=== PATIENT | female | born 1965 | race Caucasian/White ===

== ENCOUNTER 2018-01-02 11:13 | Inpatient (IN) | payer MEDICAID ==
[~2018-01-02] VITALS: Ht 165.1 cm; Wt 65.9 kg
[~2018-01-02 11:13] MED LIST: BECL8.7A3 IH; DOCU-20 PO; GABA-338 PO; MONT10TA21 PO; MORP15TA PO; NAPR-56 PO; NITR0.4T51 SL; OXYBUTYNIN PO; PSEU-225 PO; RANI150C11 PO; TRIA16.5 NS
[2018-01-02] MEDS ORDERED: normal saline 1000ML IV soln IVB ONE (12:20)
[2018-01-02] MEDS ORDERED: ondansetron/PF 4mg/2ml inj IV ONE (12:20)
[2018-01-02 12:40] LABS: BASOPHILS % (AUTO) 0.5 % (0-1); EOSINOPHILS % (AUTO) 0.3 % (0-6); HEMATOCRIT 32.2 % (35.0-45.0); HEMOGLOBIN 10.6 g/dl (12.0-16.0); LYMPHOCYTES # (AUTO) 0.6 X10'3 (1.1-4.8); LYMPHOCYTES % (AUTO) 10.4 % (21-51); MEAN CORPUSCULAR HEMOGLOBIN 25.2 PG (27.0-31.0); MEAN CORPUSCULAR HGB CONC 32.9 % (33.0-36.5); MEAN CORPUSCULAR VOLUME 76.7 FL (78-98); MEAN PLATELET VOLUME 6.7 FL (7.4-10.4); MONOCYTES # (AUTO) 0.6 X10'3 (0-0.9); MONOCYTES % (AUTO) 10.1 % (2-12); NEUTROPHILS # (AUTO) 4.7 X10'3 (1.8-7.7); NEUTROPHILS % (AUTO) 78.7 % (42-75); PLATELET COUNT 782 X10'3 (140-440); RED CELL DISTRIBUTION WIDTH 14.5 % (11.5-14.5)
[2018-01-02 12:53] LABS: ALANINE AMINOTRANSFERASE 17 U/L (12-78); ALBUMIN 1.9 G/DL (3.4-5.0); ALBUMIN/GLOBULIN RATIO 0.5 (1.1-1.5); ALKALINE PHOSPHATASE 139 IU/L (46-116); ANION GAP 13 (8-16); ASPARTATE AMINO TRANSFERASE 12 U/L (10-37); BILIRUBIN,TOTAL 0.6 MG/DL (0.1-1.0); BLOOD UREA NITROGEN 19 MG/DL (7-18); BUN/CREATININE RATIO 24.7 (6.6-38.0); CALCIUM 9.2 MG/DL (8.5-10.1); CHLORIDE 95 MMOL/L (99-107); CREATININE 0.77 MG/DL (0.40-0.90); GLUCOSE 103 MG/DL (70-104); POTASSIUM 4.5 MMOL/L (3.5-5.1); SODIUM 130 MMOL/L (135-145); TOTAL CARBON DIOXIDE 21.9 MMOL/L (24-32); TOTAL PROTEIN 5.8 G/DL (6.4-8.2); eGFR 78 ML/MIN
[2018-01-02 12:58] LABS: LIPASE < 50 U/L (73-393); TROPONIN I < 0.04 NG/ML (0.0-0.05)
[2018-01-02 13:13] LABS: PLATELET ESTIMATE INCREASED; TOTAL CELLS COUNTED 100
[2018-01-02 13:14] LABS: POLYCHROMASIA FEW; SCHISTOCYTES FEW
[2018-01-02 13:15] LABS: ROULEAUX 1+
[2018-01-02 13:16] LABS: SPHEROCYTES FEW
[2018-01-02] MEDS ORDERED: CefTRIAXone 2gm/D5W 50ml 50 ML IV ONE (13:25)
[2018-01-02 13:34] LABS: CLARITY,URINE CLEAR (Clear); COLOR,URINE YELLOW (Yellow); GLUCOSE, URINE NEGATIVE (Neg); KETONES,URINE >=80 mg/dl (Neg); LEUKOCYTE ESTERASE ,URINE NEGATIVE (Neg); NITRITES, URINE NEGATIVE (Neg); OCCULT BLOOD,URINE NEGATIVE (Neg); PROTEIN,URINE 30 mg/dl (Neg)
[2018-01-02 13:36] LABS: UA COLLECTION TYPE STRAIGHT CATH
[2018-01-02 13:41] LABS: BACTERIA,URINE NONE SEEN /HPF (Neg); RBC,URINE NONE SEEN /HPF (0-2); SQUAMOUS EPITHELIAL CELL,UR FEW /LPF (FEW); WBC,URINE NONE SEEN /HPF (0-4)
[2018-01-02] MEDS ORDERED: VENL150C2 PO (14:01)
[2018-01-02] MEDS ORDERED: OXYB15TA PO (14:07)
[2018-01-02] MEDS ORDERED: METO25TA6 PO (14:10)
[2018-01-02] MEDS ORDERED: iohexol 300mg/ml 100ml inj. ONE (14:12)
[2018-01-02] MEDS: normal saline 1000ml 1,000 ML IV SCH (14:29)
[2018-01-02] MEDS ORDERED: acetaminophen 325mg tablet PO PRN ×2 (14:30)
[2018-01-02] MEDS ORDERED: magnesium hydroxide 30ml (MOM) UD suspension PO PRN (14:30)
[2018-01-02] MEDS ORDERED: HYDROcodone/acetaminophen 5mg/325mg tablet PO PRN (14:30)
[2018-01-02] MEDS ORDERED: mag hydrox/Alum hydrox/simeth 30ml oral suspension PO PRN (14:30)
[2018-01-02] MEDS: levoFLOXACIN-Levaquin 500mg/D5 100 ML IV SCH (16:22)
[2018-01-02 17:45] VITALS: BP 111/58
[2018-01-02 18:00] VITALS: BP 109/74
[2018-01-02] MEDS: metroNIDAZOLE-Flagyl 500mg/NS 100 ML IV SCH (19:09)
[2018-01-02] MEDS: oxybutynin 5mg tablet PO SCH (19:11)
[2018-01-02] MEDS: morphine ER 15mg tablet PO SCH (19:11)
[2018-01-02] MEDS: famotidine 20mg tablet PO SCH (19:11)
[2018-01-02] MEDS: docusate sod 100mg capsule PO SCH (19:20)
[2018-01-02] MEDS ORDERED: metoprolol tartrate 25mg tablet PO SCH (20:00)
[2018-01-02] MEDS: zolpidem 5mg tablet PO PRN (20:35)
[2018-01-02] MEDS: ondansetron/PF 4mg/2ml inj IV PRN (20:35)
[2018-01-02] MEDS: montelukast 10mg tablet PO SCH (20:35)
[2018-01-02] MEDS: gabapentin 300mg capsule PO SCH (20:48)
[2018-01-03] VITALS: BP 112/66
[2018-01-03] MEDS: metroNIDAZOLE-Flagyl 500mg/NS 100 ML IV SCH ×2 (00:18→08:03)
[2018-01-03 05:44] LABS: BASOPHILS % (AUTO) 0.2 % (0-1); EOSINOPHILS # (AUTO) 0.1 X10'3 (0-0.9); EOSINOPHILS % (AUTO) 1.5 % (0-6); HEMATOCRIT 27.7 % (35.0-45.0); HEMOGLOBIN 9.1 g/dl (12.0-16.0); LYMPHOCYTES # (AUTO) 0.4 X10'3 (1.1-4.8); LYMPHOCYTES % (AUTO) 10.4 % (21-51); MEAN CORPUSCULAR HEMOGLOBIN 25.4 PG (27.0-31.0); MEAN CORPUSCULAR HGB CONC 32.8 % (33.0-36.5); MEAN CORPUSCULAR VOLUME 77.2 FL (78-98); MEAN PLATELET VOLUME 6.6 FL (7.4-10.4); MONOCYTES # (AUTO) 0.5 X10'3 (0-0.9); MONOCYTES % (AUTO) 13.9 % (2-12); NEUTROPHILS # (AUTO) 2.5 X10'3 (1.8-7.7); PLATELET COUNT 617 X10'3 (140-440); RED BLOOD COUNT 3.59 X10'6 (4.20-5.60); RED CELL DISTRIBUTION WIDTH 14.4 % (11.5-14.5); WHITE BLOOD COUNT 3.4 X10'3 (4.5-11.0)
[2018-01-03] MEDS: ondansetron/PF 4mg/2ml inj IV PRN ×2 (05:51→16:41)
[2018-01-03] MEDS: normal saline 1000ml 1,000 ML IV SCH ×3 (05:51→20:29)
[2018-01-03] MEDS: HYDROcodone/acetaminophen 10/325mg tab PO PRN (05:57)
[2018-01-03 06:12] LABS: ALANINE AMINOTRANSFERASE 13 U/L (12-78); ALBUMIN 1.5 G/DL (3.4-5.0); ALBUMIN/GLOBULIN RATIO 0.5 (1.1-1.5); ALKALINE PHOSPHATASE 115 IU/L (46-116); ANION GAP 13 (8-16); ASPARTATE AMINO TRANSFERASE 12 U/L (10-37); BILIRUBIN,TOTAL 0.4 MG/DL (0.1-1.0); BLOOD UREA NITROGEN 11 MG/DL (7-18); BUN/CREATININE RATIO 15.9 (6.6-38.0); CALCIUM 8.4 MG/DL (8.5-10.1); CHLORIDE 102 MMOL/L (99-107); CREATININE 0.69 MG/DL (0.40-0.90); GLUCOSE 90 MG/DL (70-104); POTASSIUM 3.5 MMOL/L (3.5-5.1); SODIUM 136 MMOL/L (135-145); TOTAL CARBON DIOXIDE 20.9 MMOL/L (24-32); TOTAL PROTEIN 4.8 G/DL (6.4-8.2); eGFR 89 ML/MIN
[2018-01-03 06:36] LABS: % IRON SATURATION 24 % (11-46); IRON 32 UG/DL (49-151); TOTAL IRON BINDING CAPACITY 132 UG/DL (259-388)
[2018-01-03 07:00] VITALS: BP 112/67
[2018-01-03] MEDS: BUDESONIDE 0.25 MG/2 ML AMPUL.NEB IH SCH ×2 (08:00→20:00)
[2018-01-03] MEDS ORDERED: enoxaparin 40mg/0.4ml syringe SUBCUT SCH (08:00)
[2018-01-03] MEDS: oxybutynin 5mg tablet PO SCH ×3 (08:04→21:09)
[2018-01-03] MEDS: famotidine 20mg tablet PO SCH ×2 (08:04→19:15)
[2018-01-03] MEDS: morphine ER 15mg tablet PO SCH ×2 (08:05→19:15)
[2018-01-03] MEDS: venlafaxine XR 75mg capsule (Q24H) PO SCH (08:05)
[2018-01-03] MEDS: docusate sod 100mg capsule PO SCH ×2 (08:05→19:15)
[2018-01-03] MEDS: gabapentin 300mg capsule PO SCH ×3 (08:05→21:00)
[2018-01-03] MEDS: levoFLOXACIN-Levaquin 500mg/D5 100 ML IV SCH (08:06)
[2018-01-03 11:00] VITALS: BP 114/70
[2018-01-03 12:13] LABS: PLATELET ESTIMATE INCREASED; TOTAL CELLS COUNTED 100
[2018-01-03 12:14] LABS: LARGE PLATELETS FEW; SMUDGE CELLS 1+; TOXIC GRANULATION 2+; TOXIC VACUOLATION FEW
[2018-01-03 12:15] LABS: HYPOCHROMASIA 1+; POLYCHROMASIA FEW; SPHEROCYTES FEW
[2018-01-03 12:16] LABS: POIKILOCYTOSIS FEW; ROULEAUX 1+
[2018-01-03] MEDS: metoprolol tartrate 25mg tablet PO SCH ×2 (13:13→21:07)
[2018-01-03] MEDS ORDERED: metroNIDAZOLE 500mg tablet PO SCH (16:00)
[2018-01-03 18:00] VITALS: BP 108/71
[2018-01-03] MEDS: lactobacillus rhamnosus 10,000 MMU CELLS/CAPSULE PO SCH (21:07)
[2018-01-03] MEDS: montelukast 10mg tablet PO SCH (21:08)
[2018-01-03] MEDS: zolpidem 5mg tablet PO PRN (21:09)
[2018-01-04] VITALS: BP 98/68
[2018-01-04] MEDS: metroNIDAZOLE-Flagyl 500mg/NS 100 ML IV SCH ×2 (01:57→07:52)
[2018-01-04] MEDS: ondansetron/PF 4mg/2ml inj IV PRN ×2 (01:57→08:06)
[2018-01-04] MEDS: HYDROcodone/acetaminophen 10/325mg tab PO PRN (02:09)
[2018-01-04 03:10] LABS: OCCULT BLOOD STOOL NEGATIVE (Neg)
[2018-01-04 06:16] LABS: ALANINE AMINOTRANSFERASE 16 U/L (12-78); ALBUMIN 1.6 G/DL (3.4-5.0); ALBUMIN/GLOBULIN RATIO 0.5 (1.1-1.5); ALKALINE PHOSPHATASE 184 IU/L (46-116); ANION GAP 10 (8-16); ASPARTATE AMINO TRANSFERASE 13 U/L (10-37); BILIRUBIN,TOTAL 0.5 MG/DL (0.1-1.0); BLOOD UREA NITROGEN 11 MG/DL (7-18); BUN/CREATININE RATIO 13.4 (6.6-38.0); CALCIUM 8.3 MG/DL (8.5-10.1); CHLORIDE 102 MMOL/L (99-107); CREATININE 0.82 MG/DL (0.40-0.90); GLUCOSE 107 MG/DL (70-104); POTASSIUM 3.6 MMOL/L (3.5-5.1); SODIUM 137 MMOL/L (135-145); eGFR 73 ML/MIN
[2018-01-04 06:20] LABS: BASOPHILS % (AUTO) 0.1 % (0-1); EOSINOPHILS # (AUTO) 0.1 X10'3 (0-0.9); EOSINOPHILS % (AUTO) 1.4 % (0-6); HEMATOCRIT 29.6 % (35.0-45.0); HEMOGLOBIN 9.6 g/dl (12.0-16.0); LYMPHOCYTES # (AUTO) 0.5 X10'3 (1.1-4.8); LYMPHOCYTES % (AUTO) 7.8 % (21-51); MEAN CORPUSCULAR HEMOGLOBIN 25.3 PG (27.0-31.0); MEAN CORPUSCULAR HGB CONC 32.5 % (33.0-36.5); MEAN CORPUSCULAR VOLUME 77.6 FL (78-98); MEAN PLATELET VOLUME 6.7 FL (7.4-10.4); MONOCYTES # (AUTO) 0.7 X10'3 (0-0.9); MONOCYTES % (AUTO) 10.6 % (2-12); NEUTROPHILS # (AUTO) 5.1 X10'3 (1.8-7.7); NEUTROPHILS % (AUTO) 80.1 % (42-75); PLATELET COUNT 720 X10'3 (140-440); RED BLOOD COUNT 3.82 X10'6 (4.20-5.60); RED CELL DISTRIBUTION WIDTH 13.9 % (11.5-14.5); WHITE BLOOD COUNT 6.4 X10'3 (4.5-11.0)
[2018-01-04] MEDS: normal saline 1000ml 1,000 ML IV SCH ×2 (06:29→16:29)
[2018-01-04 07:00] VITALS: BP 100/60
[2018-01-04 07:34] LABS: PLATELET ESTIMATE INCREASED; TOTAL CELLS COUNTED 100
[2018-01-04 07:35] LABS: HYPOCHROMASIA 1+; MICROCYTOSIS 1+; POLYCHROMASIA 1+; TOXIC GRANULATION 2+
[2018-01-04] MEDS: simethicone 125mg capsule PO SCH ×2 (07:52→18:58)
[2018-01-04] MEDS: venlafaxine XR 75mg capsule (Q24H) PO SCH (07:53)
[2018-01-04] MEDS: gabapentin 300mg capsule PO SCH ×3 (07:53→20:50)
[2018-01-04] MEDS: oxybutynin 5mg tablet PO SCH ×4 (07:53→20:52)
[2018-01-04] MEDS: morphine ER 15mg tablet PO SCH ×2 (07:53→20:51)
[2018-01-04] MEDS: famotidine 20mg tablet PO SCH ×2 (07:54→20:52)
[2018-01-04] MEDS: dicyclomine 10 MG capsule PO PRN ×2 (07:54→17:09)
[2018-01-04] MEDS: lactobacillus rhamnosus 10,000 MMU CELLS/CAPSULE PO SCH ×2 (07:54→20:51)
[2018-01-04] MEDS: docusate sod 100mg capsule PO SCH ×2 (08:00→20:00)
[2018-01-04] MEDS: metoprolol tartrate 25mg tablet PO SCH ×2 (08:00→20:50)
[2018-01-04] MEDS: BUDESONIDE 0.25 MG/2 ML AMPUL.NEB IH SCH ×2 (08:00→20:00)
[2018-01-04] MEDS ORDERED: levoFLOXACIN-Levaquin 750MG/D5 150 ML IV SCH (08:00)
[2018-01-04 09:46] LABS: C DIFF ANTIGEN POSITIVE (NEGATIVE); C DIFF SPECIMEN=DIARRHEA? ACCEPTABLE; C DIFFICILE TOXINS A&B POSITIVE (Neg)
[2018-01-04 09:49] LABS: CRYPTOSPORIDIUM AG NEGATIVE (Neg); GIARDIA LAMBLIA AG NEGATIVE (Neg)
[2018-01-04 10:30] VITALS: BP 94/36
[2018-01-04 11:00] VITALS: BP 110/65
[2018-01-04] MEDS ORDERED: levoFLOXACIN 500mg tablet PO SCH (11:00)
[2018-01-04 18:00] VITALS: BP 101/70
[2018-01-04] MEDS: montelukast 10mg tablet PO SCH (20:52)
[2018-01-04 21:45] LABS: OCCULT BLOOD STOOL NEGATIVE (Neg)
[2018-01-05] VITALS: BP 106/69
[2018-01-05] MEDS: normal saline 1000ml 1,000 ML IV SCH ×3 (02:07→22:29)
[2018-01-05] MEDS: dicyclomine 10 MG capsule PO PRN (02:26)
[2018-01-05 08:00] VITALS: BP 106/66
[2018-01-05] MEDS: docusate sod 100mg capsule PO SCH ×2 (08:00→09:22)
[2018-01-05] MEDS: BUDESONIDE 0.25 MG/2 ML AMPUL.NEB IH SCH ×3 (08:00→20:22)
[2018-01-05] MEDS: metoprolol tartrate 25mg tablet PO SCH ×2 (09:22→20:00)
[2018-01-05] MEDS: oxybutynin 5mg tablet PO SCH ×4 (09:22→20:04)
[2018-01-05] MEDS: lactobacillus rhamnosus 10,000 MMU CELLS/CAPSULE PO SCH ×2 (09:22→20:04)
[2018-01-05] MEDS: famotidine 20mg tablet PO SCH ×2 (09:22→20:03)
[2018-01-05] MEDS: morphine ER 15mg tablet PO SCH ×2 (09:22→20:04)
[2018-01-05] MEDS: gabapentin 300mg capsule PO SCH ×3 (09:22→20:04)
[2018-01-05] MEDS: venlafaxine XR 75mg capsule (Q24H) PO SCH (09:23)
[2018-01-05 12:00] VITALS: BP 106/69
[2018-01-05] MEDS: metroNIDAZOLE-Flagyl 500mg/NS 100 ML IV SCH ×2 (16:59→23:27)
[2018-01-05 19:00] VITALS: BP 100/63
[2018-01-05] MEDS: montelukast 10mg tablet PO SCH (20:04)
[2018-01-05] MEDS: HYDROcodone/acetaminophen 10/325mg tab PO PRN (22:19)
[2018-01-05] MEDS: simethicone 125mg capsule PO SCH (23:27)
[2018-01-05] MEDS: zolpidem 5mg tablet PO PRN (23:41)
[2018-01-06] VITALS: BP 100/59
[2018-01-06 07:00] VITALS: BP 113/70
[2018-01-06 07:09] LABS: BASOPHILS % (AUTO) 0.8 % (0-1); EOSINOPHILS # (AUTO) 0.2 X10'3 (0-0.9); EOSINOPHILS % (AUTO) 3.4 % (0-6); HEMATOCRIT 28.9 % (35.0-45.0); HEMOGLOBIN 9.3 g/dl (12.0-16.0); LYMPHOCYTES # (AUTO) 0.8 X10'3 (1.1-4.8); LYMPHOCYTES % (AUTO) 15.8 % (21-51); MEAN CORPUSCULAR HEMOGLOBIN 25.2 PG (27.0-31.0); MEAN CORPUSCULAR HGB CONC 32.3 % (33.0-36.5); MEAN PLATELET VOLUME 6.3 FL (7.4-10.4); MONOCYTES # (AUTO) 0.5 X10'3 (0-0.9); MONOCYTES % (AUTO) 9.2 % (2-12); NEUTROPHILS # (AUTO) 3.7 X10'3 (1.8-7.7); NEUTROPHILS % (AUTO) 70.8 % (42-75); PLATELET COUNT 739 X10'3 (140-440); RED CELL DISTRIBUTION WIDTH 15.8 % (11.5-14.5); WHITE BLOOD COUNT 5.2 X10'3 (4.5-11.0)
[2018-01-06] MEDS: HYDROcodone/acetaminophen 10/325mg tab PO PRN (07:25)
[2018-01-06] MEDS: metroNIDAZOLE-Flagyl 500mg/NS 100 ML IV SCH ×3 (07:25→23:09)
[2018-01-06] MEDS: gabapentin 300mg capsule PO SCH ×3 (07:26→20:06)
[2018-01-06] MEDS: famotidine 20mg tablet PO SCH ×2 (07:26→20:06)
[2018-01-06] MEDS: venlafaxine XR 75mg capsule (Q24H) PO SCH (07:26)
[2018-01-06] MEDS: lactobacillus rhamnosus 10,000 MMU CELLS/CAPSULE PO SCH ×2 (07:26→20:06)
[2018-01-06] MEDS: morphine ER 15mg tablet PO SCH ×2 (07:26→20:07)
[2018-01-06] MEDS: oxybutynin 5mg tablet PO SCH ×4 (07:26→20:06)
[2018-01-06] MEDS: metoprolol tartrate 25mg tablet PO SCH ×2 (07:32→20:07)
[2018-01-06 07:33] LABS: ALANINE AMINOTRANSFERASE 17 U/L (12-78); ALBUMIN 1.6 G/DL (3.4-5.0); ALBUMIN/GLOBULIN RATIO 0.5 (1.1-1.5); ALKALINE PHOSPHATASE 128 IU/L (46-116); ANION GAP 10 (8-16); ASPARTATE AMINO TRANSFERASE 16 U/L (10-37); BILIRUBIN,TOTAL 0.2 MG/DL (0.1-1.0); BLOOD UREA NITROGEN 4 MG/DL (7-18); BUN/CREATININE RATIO 6.3 (6.6-38.0); CALCIUM 8.1 MG/DL (8.5-10.1); CHLORIDE 106 MMOL/L (99-107); CREATININE 0.64 MG/DL (0.40-0.90); GLUCOSE 105 MG/DL (70-104); MAGNESIUM 1.8 MG/DL (1.5-2.4); PHOSPHORUS 3.1 MG/DL (2.3-4.5); SODIUM 144 MMOL/L (135-145); TOTAL CARBON DIOXIDE 27.8 MMOL/L (24-32); TOTAL PROTEIN 4.6 G/DL (6.4-8.2); eGFR > 90 ML/MIN
[2018-01-06 07:35] LABS: POTASSIUM 2.9 MMOL/L (3.5-5.1)
[2018-01-06] MEDS: normal saline 1000ml 1,000 ML IV SCH ×2 (07:36→18:29)
[2018-01-06] MEDS: docusate sod 100mg capsule PO SCH ×2 (08:00→20:06)
[2018-01-06] MEDS: BUDESONIDE 0.25 MG/2 ML AMPUL.NEB IH SCH ×2 (08:15→21:22)
[2018-01-06 08:18] LABS: TOTAL CELLS COUNTED 100
[2018-01-06 08:22] LABS: ANISOCYTOSIS 1+; MICROCYTOSIS 1+; PLATELET ESTIMATE INCREASED; POLYCHROMASIA 1+; TOXIC VACUOLATION 1+
[2018-01-06 08:23] LABS: HYPOCHROMASIA 1+; TEAR DROP CELLS FEW; TOXIC GRANULATION 1+
[2018-01-06] MEDS ORDERED: magnesium 4gm in 100ml NS 100 ML IV PRN (08:50)
[2018-01-06] MEDS ORDERED: magnesium/D5W IVPB 100 ML IV PRN (08:50)
[2018-01-06] MEDS ORDERED: magnesium Cl slow-release 64mg tablet PO PRN (08:50)
[2018-01-06] MEDS ORDERED: potassium Cl 40MEQ/NS 500ml 500 ML IV PRN ×2 (08:50)
[2018-01-06] MEDS: potassium Cl 20 mEq SR tablet PO PRN ×3 (09:03→17:03)
[2018-01-06 11:00] VITALS: BP 92/64
[2018-01-06 19:00] VITALS: BP 116/75
[2018-01-06] MEDS: montelukast 10mg tablet PO SCH (20:07)
[2018-01-06] MEDS: ondansetron/PF 4mg/2ml inj IV PRN (20:09)
[2018-01-07] VITALS: BP 104/62
[2018-01-07] MEDS: simethicone 125mg capsule PO SCH (01:03)
[2018-01-07] MEDS: normal saline 1000ml 1,000 ML IV SCH ×3 (04:46→20:10)
[2018-01-07 06:19] LABS: BASOPHILS % (AUTO) 0.8 % (0-1); EOSINOPHILS # (AUTO) 0.2 X10'3 (0-0.9); EOSINOPHILS % (AUTO) 3.7 % (0-6); HEMATOCRIT 25.6 % (35.0-45.0); HEMOGLOBIN 8.3 g/dl (12.0-16.0); LYMPHOCYTES # (AUTO) 0.9 X10'3 (1.1-4.8); LYMPHOCYTES % (AUTO) 15.5 % (21-51); MEAN CORPUSCULAR HEMOGLOBIN 25.3 PG (27.0-31.0); MEAN CORPUSCULAR HGB CONC 32.5 % (33.0-36.5); MEAN CORPUSCULAR VOLUME 77.8 FL (78-98); MEAN PLATELET VOLUME 6.1 FL (7.4-10.4); MONOCYTES # (AUTO) 0.5 X10'3 (0-0.9); MONOCYTES % (AUTO) 8.7 % (2-12); NEUTROPHILS # (AUTO) 4.2 X10'3 (1.8-7.7); NEUTROPHILS % (AUTO) 71.3 % (42-75); PLATELET COUNT 632 X10'3 (140-440); RED CELL DISTRIBUTION WIDTH 15.6 % (11.5-14.5); WHITE BLOOD COUNT 5.9 X10'3 (4.5-11.0)
[2018-01-07 06:36] LABS: ALANINE AMINOTRANSFERASE 14 U/L (12-78); ALBUMIN 1.5 G/DL (3.4-5.0); ALBUMIN/GLOBULIN RATIO 0.6 (1.1-1.5); ALKALINE PHOSPHATASE 183 IU/L (46-116); ANION GAP 8 (8-16); ASPARTATE AMINO TRANSFERASE 31 U/L (10-37); BILIRUBIN,TOTAL 0.2 MG/DL (0.1-1.0); BLOOD UREA NITROGEN 2 MG/DL (7-18); BUN/CREATININE RATIO 3.8 (6.6-38.0); CALCIUM 7.5 MG/DL (8.5-10.1); CHLORIDE 109 MMOL/L (99-107); CREATININE 0.53 MG/DL (0.40-0.90); GLUCOSE 105 MG/DL (70-104); MAGNESIUM 1.6 MG/DL (1.5-2.4); PHOSPHORUS 2.6 MG/DL (2.3-4.5); POTASSIUM 3.9 MMOL/L (3.5-5.1); SODIUM 143 MMOL/L (135-145); TOTAL CARBON DIOXIDE 25.8 MMOL/L (24-32); TOTAL PROTEIN 4.2 G/DL (6.4-8.2); eGFR > 90 ML/MIN
[2018-01-07 06:39] LABS: NUCLEATED RED BLOOD CELLS 1 /100WBC (0-0); TOTAL CELLS COUNTED 100
[2018-01-07 06:40] LABS: ANISOCYTOSIS 1+; HYPOCHROMASIA 1+; LARGE PLATELETS FEW; PLATELET ESTIMATE INCREASED; POLYCHROMASIA 1+; TOXIC GRANULATION 1+
[2018-01-07 07:00] VITALS: BP 103/60
[2018-01-07] MEDS: docusate sod 100mg capsule PO SCH ×2 (08:00→20:00)
[2018-01-07] MEDS: metoprolol tartrate 25mg tablet PO SCH ×2 (08:00→20:04)
[2018-01-07] MEDS: BUDESONIDE 0.25 MG/2 ML AMPUL.NEB IH SCH ×2 (08:33→20:48)
[2018-01-07] MEDS: oxybutynin 5mg tablet PO SCH ×4 (09:23→20:05)
[2018-01-07] MEDS: morphine ER 15mg tablet PO SCH ×2 (09:23→20:05)
[2018-01-07] MEDS: metroNIDAZOLE-Flagyl 500mg/NS 100 ML IV SCH ×3 (09:23→23:24)
[2018-01-07] MEDS: gabapentin 300mg capsule PO SCH ×3 (09:24→20:04)
[2018-01-07] MEDS: lactobacillus rhamnosus 10,000 MMU CELLS/CAPSULE PO SCH ×2 (09:24→20:04)
[2018-01-07] MEDS: famotidine 20mg tablet PO SCH ×2 (09:24→20:04)
[2018-01-07] MEDS: venlafaxine XR 75mg capsule (Q24H) PO SCH (09:28)
[2018-01-07 12:00] VITALS: BP 108/76
[2018-01-07 19:00] VITALS: BP 110/77
[2018-01-07] MEDS: montelukast 10mg tablet PO SCH (20:05)
[2018-01-07] MEDS: ondansetron/PF 4mg/2ml inj IV PRN (20:09)
[2018-01-08] VITALS: BP 114/71
[2018-01-08] MEDS: zolpidem 5mg tablet PO PRN (01:27)
[2018-01-08] MEDS: simethicone 125mg capsule PO PRN ×2 (01:28→20:50)
[2018-01-08 05:47] LABS: BASOPHILS % (AUTO) 0.6 % (0-1); EOSINOPHILS # (AUTO) 0.2 X10'3 (0-0.9); EOSINOPHILS % (AUTO) 3.1 % (0-6); HEMATOCRIT 25.5 % (35.0-45.0); HEMOGLOBIN 8.2 g/dl (12.0-16.0); LYMPHOCYTES # (AUTO) 1.1 X10'3 (1.1-4.8); LYMPHOCYTES % (AUTO) 16.1 % (21-51); MEAN CORPUSCULAR HEMOGLOBIN 25.3 PG (27.0-31.0); MEAN CORPUSCULAR HGB CONC 32.3 % (33.0-36.5); MEAN CORPUSCULAR VOLUME 78.3 FL (78-98); MEAN PLATELET VOLUME 6.3 FL (7.4-10.4); MONOCYTES # (AUTO) 0.4 X10'3 (0-0.9); MONOCYTES % (AUTO) 6.6 % (2-12); NEUTROPHILS # (AUTO) 4.9 X10'3 (1.8-7.7); NEUTROPHILS % (AUTO) 73.6 % (42-75); PLATELET COUNT 626 X10'3 (140-440); RED BLOOD COUNT 3.26 X10'6 (4.20-5.60); RED CELL DISTRIBUTION WIDTH 15.8 % (11.5-14.5); WHITE BLOOD COUNT 6.7 X10'3 (4.5-11.0)
[2018-01-08 06:09] LABS: ALANINE AMINOTRANSFERASE 28 U/L (12-78); ALBUMIN 1.6 G/DL (3.4-5.0); ALBUMIN/GLOBULIN RATIO 0.6 (1.1-1.5); ALKALINE PHOSPHATASE 99 IU/L (46-116); ANION GAP 7 (8-16); ASPARTATE AMINO TRANSFERASE 43 U/L (10-37); BILIRUBIN,TOTAL 0.2 MG/DL (0.1-1.0); BLOOD UREA NITROGEN 2 MG/DL (7-18); BUN/CREATININE RATIO 2.9 (6.6-38.0); CALCIUM 8.2 MG/DL (8.5-10.1); CHLORIDE 107 MMOL/L (99-107); GLUCOSE 107 MG/DL (70-104); MAGNESIUM 1.6 MG/DL (1.5-2.4); PHOSPHORUS 2.9 MG/DL (2.3-4.5); POTASSIUM 3.2 MMOL/L (3.5-5.1); SODIUM 141 MMOL/L (135-145); TOTAL CARBON DIOXIDE 27.1 MMOL/L (24-32); TOTAL PROTEIN 4.1 G/DL (6.4-8.2); eGFR 87 ML/MIN
[2018-01-08 06:37] LABS: BANDS% (MANUAL) 3 % (0-10); BASOPHILS % (MANUAL) 1 % (0-1); EOSINOPHILS % (MANUAL) 1 % (0-6); LYMPHOCYTES % (MANUAL) 11 % (21-51); METAMYLEOCYTES% (MANUAL) 1 % (0-0); MONOCYTES % (MANUAL) 6 % (2-12); NEUTROPHILS % (MANUAL) 76 % (42-75); REACTIVE LYMPHOCYTES % 1 % (0-0); TOTAL CELLS COUNTED 100
[2018-01-08 06:38] LABS: PLATELET ESTIMATE INCREASED
[2018-01-08 06:39] LABS: ANISOCYTOSIS 1+; TOXIC GRANULATION 1+
[2018-01-08 07:00] VITALS: BP 113/70
[2018-01-08] MEDS: BUDESONIDE 0.25 MG/2 ML AMPUL.NEB IH SCH ×2 (07:25→20:43)
[2018-01-08] MEDS: docusate sod 100mg capsule PO SCH ×2 (08:00→20:00)
[2018-01-08] MEDS: metroNIDAZOLE-Flagyl 500mg/NS 100 ML IV SCH ×2 (08:21→16:32)
[2018-01-08] MEDS: normal saline 1000ml 1,000 ML IV SCH ×2 (08:23→22:20)
[2018-01-08] MEDS: gabapentin 300mg capsule PO SCH ×3 (08:27→20:50)
[2018-01-08] MEDS: famotidine 20mg tablet PO SCH ×2 (08:27→20:50)
[2018-01-08] MEDS: metoprolol tartrate 25mg tablet PO SCH ×2 (08:27→20:55)
[2018-01-08] MEDS: venlafaxine XR 75mg capsule (Q24H) PO SCH (08:28)
[2018-01-08] MEDS: lactobacillus rhamnosus 10,000 MMU CELLS/CAPSULE PO SCH ×2 (08:29→20:52)
[2018-01-08] MEDS: oxybutynin 5mg tablet PO SCH ×4 (08:29→20:51)
[2018-01-08] MEDS: morphine ER 15mg tablet PO SCH ×2 (08:30→20:55)
[2018-01-08] MEDS: potassium Cl 20 mEq SR tablet PO PRN ×2 (08:44→12:48)
[2018-01-08 12:18] VITALS: BP 106/70
[2018-01-08 18:00] VITALS: BP 116/78
[2018-01-08] MEDS: montelukast 10mg tablet PO SCH (20:56)
[2018-01-09] VITALS: BP 126/68
[2018-01-09] MEDS: zolpidem 5mg tablet PO PRN ×2 (00:39→23:01)
[2018-01-09] MEDS: ondansetron/PF 4mg/2ml inj IV PRN ×2 (00:39→21:09)
[2018-01-09] MEDS: metroNIDAZOLE-Flagyl 500mg/NS 100 ML IV SCH ×2 (00:39→07:28)
[2018-01-09 04:56] LABS: HEMATOCRIT 25.4 % (35.0-45.0); HEMOGLOBIN 8.2 g/dl (12.0-16.0); MEAN CORPUSCULAR HEMOGLOBIN 25.2 PG (27.0-31.0); MEAN CORPUSCULAR HGB CONC 32.3 % (33.0-36.5); MEAN CORPUSCULAR VOLUME 78.1 FL (78-98); MEAN PLATELET VOLUME 6.2 FL (7.4-10.4); PLATELET COUNT 610 X10'3 (140-440); RED BLOOD COUNT 3.25 X10'6 (4.20-5.60); RED CELL DISTRIBUTION WIDTH 15.5 % (11.5-14.5); WHITE BLOOD COUNT 6.4 X10'3 (4.5-11.0)
[2018-01-09 05:33] LABS: ALANINE AMINOTRANSFERASE 29 U/L (12-78); ALBUMIN 1.6 G/DL (3.4-5.0); ALBUMIN/GLOBULIN RATIO 0.7 (1.1-1.5); ALKALINE PHOSPHATASE 92 IU/L (46-116); ANION GAP 6 (8-16); ASPARTATE AMINO TRANSFERASE 31 U/L (10-37); BILIRUBIN,TOTAL 0.1 MG/DL (0.1-1.0); BLOOD UREA NITROGEN 2 MG/DL (7-18); BUN/CREATININE RATIO 3.3 (6.6-38.0); CALCIUM 8.2 MG/DL (8.5-10.1); CHLORIDE 110 MMOL/L (99-107); CREATININE 0.61 MG/DL (0.40-0.90); GLUCOSE 115 MG/DL (70-104); MAGNESIUM 1.6 MG/DL (1.5-2.4); PHOSPHORUS 3.2 MG/DL (2.3-4.5); POTASSIUM 3.7 MMOL/L (3.5-5.1); SODIUM 144 MMOL/L (135-145); eGFR > 90 ML/MIN
[2018-01-09] MEDS: normal saline 1000ml 1,000 ML IV SCH ×2 (06:29→23:00)
[2018-01-09 06:52] LABS: BASOPHILS % (MANUAL) 1 % (0-1); EOSINOPHILS % (MANUAL) 2 % (0-6); LYMPHOCYTES % (MANUAL) 19 % (21-51); METAMYLEOCYTES% (MANUAL) 2 % (0-0); MONOCYTES % (MANUAL) 3 % (2-12); MYELOCYTES % (MANUAL) 2 % (0-0); NEUTROPHILS % (MANUAL) 70 % (42-75); NUCLEATED RED BLOOD CELLS 1 /100WBC (0-0); PLATELET ESTIMATE INCREASED; SMUDGE CELLS 2+; TOTAL CELLS COUNTED 100
[2018-01-09 06:56] LABS: HYPOCHROMASIA 1+; POLYCHROMASIA FEW
[2018-01-09] MEDS: gabapentin 300mg capsule PO SCH ×3 (07:28→20:16)
[2018-01-09] MEDS: famotidine 20mg tablet PO SCH ×2 (07:28→20:18)
[2018-01-09] MEDS: venlafaxine XR 75mg capsule (Q24H) PO SCH (07:29)
[2018-01-09] MEDS: metoprolol tartrate 25mg tablet PO SCH ×2 (07:29→20:18)
[2018-01-09] MEDS: morphine ER 15mg tablet PO SCH ×2 (07:29→20:17)
[2018-01-09] MEDS: lactobacillus rhamnosus 10,000 MMU CELLS/CAPSULE PO SCH ×2 (07:29→20:17)
[2018-01-09] MEDS: oxybutynin 5mg tablet PO SCH ×4 (07:29→20:17)
[2018-01-09] MEDS: docusate sod 100mg capsule PO SCH ×2 (07:30→20:16)
[2018-01-09 07:44] VITALS: BP 129/78
[2018-01-09] MEDS: BUDESONIDE 0.25 MG/2 ML AMPUL.NEB IH SCH ×2 (08:30→20:26)
[2018-01-09 12:00] VITALS: BP 130/76
[2018-01-09 18:00] VITALS: BP 125/89
[2018-01-09] MEDS: simethicone 125mg capsule PO PRN (20:16)
[2018-01-09] MEDS: montelukast 10mg tablet PO SCH (20:17)
[2018-01-10] VITALS: BP 123/79
[2018-01-10 06:42] LABS: BASOPHILS % (AUTO) 0.4 % (0-1); EOSINOPHILS # (AUTO) 0.2 X10'3 (0-0.9); HEMOGLOBIN 8.3 g/dl (12.0-16.0); LYMPHOCYTES # (AUTO) 1.4 X10'3 (1.1-4.8); MEAN CORPUSCULAR HEMOGLOBIN 25.4 PG (27.0-31.0); MEAN PLATELET VOLUME 6.4 FL (7.4-10.4); MONOCYTES # (AUTO) 0.6 X10'3 (0-0.9); MONOCYTES % (AUTO) 7.4 % (2-12); NEUTROPHILS # (AUTO) 5.2 X10'3 (1.8-7.7); NEUTROPHILS % (AUTO) 70.2 % (42-75); PLATELET COUNT 537 X10'3 (140-440); RED BLOOD COUNT 3.25 X10'6 (4.20-5.60); RED CELL DISTRIBUTION WIDTH 15.7 % (11.5-14.5); WHITE BLOOD COUNT 7.4 X10'3 (4.5-11.0)
[2018-01-10 07:02] LABS: ALANINE AMINOTRANSFERASE 25 U/L (12-78); ALBUMIN 1.7 G/DL (3.4-5.0); ALBUMIN/GLOBULIN RATIO 0.7 (1.1-1.5); ALKALINE PHOSPHATASE 84 IU/L (46-116); ANION GAP 6 (8-16); ASPARTATE AMINO TRANSFERASE 16 U/L (10-37); BILIRUBIN,TOTAL 0.2 MG/DL (0.1-1.0); BLOOD UREA NITROGEN 1 MG/DL (7-18); BUN/CREATININE RATIO 1.3 (6.6-38.0); CALCIUM 8.1 MG/DL (8.5-10.1); CHLORIDE 109 MMOL/L (99-107); CREATININE 0.75 MG/DL (0.40-0.90); GLUCOSE 100 MG/DL (70-104); MAGNESIUM 1.7 MG/DL (1.5-2.4); POTASSIUM 3.6 MMOL/L (3.5-5.1); SODIUM 145 MMOL/L (135-145); TOTAL CARBON DIOXIDE 30.4 MMOL/L (24-32); TOTAL PROTEIN 4.1 G/DL (6.4-8.2); eGFR 81 ML/MIN
[2018-01-10 08:00] VITALS: BP 125/73
[2018-01-10] MEDS: docusate sod 100mg capsule PO SCH ×2 (08:00→21:34)
[2018-01-10] MEDS: metoprolol tartrate 25mg tablet PO SCH ×2 (08:36→21:35)
[2018-01-10] MEDS: gabapentin 300mg capsule PO SCH ×3 (08:36→21:35)
[2018-01-10] MEDS: morphine ER 15mg tablet PO SCH ×2 (08:38→21:35)
[2018-01-10] MEDS: venlafaxine XR 75mg capsule (Q24H) PO SCH (08:38)
[2018-01-10] MEDS: oxybutynin 5mg tablet PO SCH ×4 (08:38→21:35)
[2018-01-10] MEDS: lactobacillus rhamnosus 10,000 MMU CELLS/CAPSULE PO SCH ×2 (08:38→21:35)
[2018-01-10] MEDS: famotidine 20mg tablet PO SCH ×2 (08:38→21:35)
[2018-01-10] MEDS: BUDESONIDE 0.25 MG/2 ML AMPUL.NEB IH SCH ×2 (10:16→20:19)
[2018-01-10] MEDS ORDERED: VANC125C4 PO (11:59)
[2018-01-10 12:00] VITALS: BP 129/77
[2018-01-10] MEDS: normal saline 1000ml 1,000 ML IV SCH ×3 (12:29→22:29)
[2018-01-10 18:00] VITALS: BP 112/62
[2018-01-10] MEDS: ondansetron/PF 4mg/2ml inj IV PRN (21:34)
[2018-01-10] MEDS: montelukast 10mg tablet PO SCH (21:35)
[2018-01-10] MEDS: simethicone 125mg capsule PO PRN (22:17)
[2018-01-10] MEDS: zolpidem 5mg tablet PO PRN (22:18)
[2018-01-11] VITALS: BP 112/81
[2018-01-11] MEDS: normal saline 1000ml 1,000 ML IV SCH (04:22)
[2018-01-11 08:00] VITALS: BP 120/78
[2018-01-11] MEDS: docusate sod 100mg capsule PO SCH (08:00)
[2018-01-11] MEDS: BUDESONIDE 0.25 MG/2 ML AMPUL.NEB IH SCH (08:08)
[2018-01-11] MEDS: gabapentin 300mg capsule PO SCH ×2 (08:52→13:25)
[2018-01-11] MEDS: metoprolol tartrate 25mg tablet PO SCH (08:52)
[2018-01-11] MEDS: morphine ER 15mg tablet PO SCH (08:52)
[2018-01-11] MEDS: oxybutynin 5mg tablet PO SCH ×2 (08:52→13:25)
[2018-01-11] MEDS: lactobacillus rhamnosus 10,000 MMU CELLS/CAPSULE PO SCH (08:52)
[2018-01-11] MEDS: famotidine 20mg tablet PO SCH (08:52)
[2018-01-11] MEDS: venlafaxine XR 75mg capsule (Q24H) PO SCH (08:53)
[2018-01-11 11:19] VITALS: BP 137/86
== END 2018-01-11 14:15 | disposition home health service (06) | DRG 720 ==
LOC: ER 11:13 → ED HOLD 14:29 → SUR 3N 16:51 → OBSVTOIN 01-03 18:52 → SUR 3N 01-04 14:52 → UNDODISOB 01-04 16:11
PROVIDERS: ADMIT Hospitalist; ATTEND Internal Medicine
PROC: BW211ZZ Computerized Tomography (CT Scan) of Abdomen and Pelvis using Low Osmolar Contrast (ICD-10-PCS; principal; 2018-01-03)
DX: A41.9 Sepsis, unspecified organism (principal); E43 Unspecified severe protein-calorie malnutrition; A04.72 Enterocolitis due to Clostridium difficile, not specified as recurrent; E87.1 Hypo-osmolality and hyponatremia; D50.9 Iron deficiency anemia, unspecified; F17.200 Nicotine dependence, unspecified, uncomplicated; E86.0 Dehydration; E87.6 Hypokalemia; F11.23 Opioid dependence with withdrawal; G89.4 Chronic pain syndrome; G62.9 Polyneuropathy, unspecified; Z79.899 Other long term (current) drug therapy; Z88.1 Allergy status to other antibiotic agents; Z91.011 Allergy to milk products; Z91.018 Allergy to other foods; Z68.24 Body mass index [BMI] 24.0-24.9, adult
CPT/HCPCS: 36415; 71045; 74177; 80053; 81001; 82272; 83540; 83550; 83605; 83690; 83735; 84100; 84132; 84145; 84484; 85007; 85025; 85027; 87040; 87045; 87046; 87070; 87324; 87328; 87329; 87336; 87449; 89055; 93005; 94640; 94760; 97110; 97116; 97162; 97530; 99285; A4315; A4353; A6449; G0378; J0696; J1650; J1956; J2405; J3490; J7030; Q9967

== ENCOUNTER 2022-02-10 17:33 | Emergency (ER) | payer MEDICAID ==
[~2022-02-10] VITALS: Ht 165.1 cm; Wt 65.7 kg
[~2022-02-10 17:33] MED LIST changes: -DOCU-20 PO; +LOP25T PO; -NAPR-56 PO; -NITR0.4T51 SL; +OXYB15TA19 PO; -OXYBUTYNIN PO; -PSEU-225 PO; -TRIA16.5 NS; +VANC125C5 PO; +VENL150C4 PO
[2022-02-10 21:40] LABS: BASOPHILS # (AUTO) 0.1 X10'3 (0-0.2); BASOPHILS % (AUTO) 1.3 % (0-1); EOSINOPHILS # (AUTO) 0.1 X10'3 (0-0.9); HEMATOCRIT 23.7 % (35.0-45.0); HEMOGLOBIN 7.3 g/dl (12.0-16.0); LYMPHOCYTES # (AUTO) 0.7 X10'3 (1.1-4.8); LYMPHOCYTES % (AUTO) 12.7 % (21-51); MEAN CORPUSCULAR HEMOGLOBIN 19.3 PG (27.0-31.0); MEAN CORPUSCULAR HGB CONC 30.8 g/dL (33.0-36.5); MEAN CORPUSCULAR VOLUME 62.7 FL (78-98); MEAN PLATELET VOLUME 7.6 FL (7.4-10.4); MONOCYTES # (AUTO) 0.5 X10'3 (0-0.9); MONOCYTES % (AUTO) 9.4 % (2-12); NEUTROPHILS % (AUTO) 75.6 % (42-75); PLATELET COUNT 386 X10'3 (140-440); RED BLOOD COUNT 3.78 X10'6 (4.20-5.60); RED CELL DISTRIBUTION WIDTH 19.4 % (11.5-14.5); WHITE BLOOD COUNT 5.2 X10'3 (4.5-11.0)
[2022-02-10 22:21] LABS: ALANINE AMINOTRANSFERASE 26 U/L (12-78); ALBUMIN 3.5 G/DL (3.4-5.0); ALBUMIN/GLOBULIN RATIO 1.1 (1.1-1.5); ALKALINE PHOSPHATASE 98 IU/L (46-116); ANION GAP 11 (8-16); ASPARTATE AMINO TRANSFERASE 18 U/L (10-37); BILIRUBIN,TOTAL 0.3 MG/DL (0.1-1.0); BLOOD UREA NITROGEN 10 MG/DL (7-18); BUN/CREATININE RATIO 10.1 (6.6-38.0); CALCIUM 8.9 MG/DL (8.5-10.1); CHLORIDE 104 MMOL/L (99-107); CREATININE 0.99 MG/DL (0.40-0.90); GLUCOSE 92 MG/DL (70-104); POTASSIUM 3.2 MMOL/L (3.5-5.1); SODIUM 138 MMOL/L (135-145); TOTAL CARBON DIOXIDE 22.7 MMOL/L (24-32); TOTAL PROTEIN 6.6 G/DL (6.4-8.2); eGFR 58 ML/MIN
[2022-02-10 22:25] LABS: PLATELET ESTIMATE NORMAL
[2022-02-10 22:26] LABS: ANISOCYTOSIS 2+; ELLIPTOCYTES 1+; MICROCYTOSIS 2+
[2022-02-10 23:10] VITALS: BP 152/89
[2022-02-10] MEDS ORDERED: ferrous gluconate 324mg tablet PO SCH (23:35)
[2022-02-11 08:39] LABS: OCCULT BLOOD STOOL POSITIVE (Neg)
== END 2022-02-11 00:06 | disposition home or self-care (01) ==
LOC: ER 17:34
DX: D50.9 Iron deficiency anemia, unspecified (principal); L29.9 Pruritus, unspecified; G89.29 Other chronic pain; J45.909 Unspecified asthma, uncomplicated; Z88.8 Allergy status to other drugs, medicaments and biological substances; Z88.1 Allergy status to other antibiotic agents; Z91.011 Allergy to milk products
CPT/HCPCS: 36415; 80053; 82272; 84550; 85008; 85025; 99283

== ENCOUNTER 2022-04-17 14:30 | Emergency (ER) | payer MEDICAID ==
[~2022-04-17] VITALS: Ht 162.6 cm; Wt 54.5 kg
[2022-04-17 14:56] LABS: URINE HCG NEGATIVE (NEG)
[2022-04-17 15:02] LABS: BASOPHILS # (AUTO) 0.1 X10'3 (0-0.2); BASOPHILS % (AUTO) 0.8 % (0-1); EOSINOPHILS % (AUTO) 0.5 % (0-6); HEMATOCRIT 37.7 % (35.0-45.0); HEMOGLOBIN 12.2 g/dl (12.0-16.0); LYMPHOCYTES # (AUTO) 1.6 X10'3 (1.1-4.8); LYMPHOCYTES % (AUTO) 17.2 % (21-51); MEAN CORPUSCULAR HGB CONC 32.4 g/dL (33.0-36.5); MEAN CORPUSCULAR VOLUME 77.3 FL (78-98); MEAN PLATELET VOLUME 7.4 FL (7.4-10.4); MONOCYTES # (AUTO) 0.7 X10'3 (0-0.9); MONOCYTES % (AUTO) 7.6 % (2-12); NEUTROPHILS # (AUTO) 6.7 X10'3 (1.8-7.7); NEUTROPHILS % (AUTO) 73.9 % (42-75); PLATELET COUNT 364 X10'3 (140-440); RED BLOOD COUNT 4.88 X10'6 (4.20-5.60); RED CELL DISTRIBUTION WIDTH 27.6 % (11.5-14.5); WHITE BLOOD COUNT 9.1 X10'3 (4.5-11.0)
[2022-04-17 15:14] LABS: ALANINE AMINOTRANSFERASE 35 U/L (12-78); ALBUMIN 3.9 G/DL (3.4-5.0); ALBUMIN/GLOBULIN RATIO 1.1 (1.1-1.5); ALKALINE PHOSPHATASE 130 IU/L (46-116); ANION GAP 12 (8-16); ASPARTATE AMINO TRANSFERASE 26 U/L (10-37); BILIRUBIN,TOTAL 0.3 MG/DL (0.1-1.0); BLOOD UREA NITROGEN 15 MG/DL (7-18); BUN/CREATININE RATIO 16.1 (6.6-38.0); CALCIUM 10.4 MG/DL (8.5-10.1); CHLORIDE 103 MMOL/L (99-107); CREATININE 0.93 MG/DL (0.40-0.90); GLUCOSE 113 MG/DL (70-104); POTASSIUM 3.4 MMOL/L (3.5-5.1); SODIUM 141 MMOL/L (135-145); TOTAL CARBON DIOXIDE 26.1 MMOL/L (24-32); TOTAL PROTEIN 7.6 G/DL (6.4-8.2); eGFR 62 ML/MIN
[2022-04-17 15:19] LABS: URINE AMPHETAMINE SCREEN NEGATIVE (Neg); URINE BARBITUATE SCREEN NEGATIVE (Neg); URINE BENZODIAZEPINES SCREEN NEGATIVE (Neg); URINE CANNABINOID SCREEN NEGATIVE (Neg); URINE COCAINE SCREEN NEGATIVE (Neg); URINE METHADONE SCREEN NEGATIVE (Neg); URINE OPIATE SCREEN NEGATIVE (Neg); URINE PHENCYCLIDINE SCREEN NEGATIVE (Neg)
[2022-04-17 15:20] LABS: ETHANOL < 0.010 GM/DL (0.0-0.010)
--- NOTE | 2022-04-17 16:40 | NUR ---
Received patient from main ED to OF bed #22. Pt was escorted by staff and ambulated independently. Pt presents disheveled and states she was sleeping in her car. Pt requested fluids, she "needs a straw and the water needs to be warm." Pt was given water and a warm blanket.
--- NOTE | 2022-04-17 17:12 | NUR ---
Pt has been back and forth from her bed to nurses station asking for different items. Pt requested her cell phone, then something to eat, kleenex. Pt was given the items that were allowed. Explained no cell phones were allowed on unit. Pt speech is slightly rapid.
--- NOTE | 2022-04-17 17:21 | NUR ---
Packet faxed to [facility] at [phone]
[2022-04-17] MEDS ORDERED: OMEP40CA21 PO (17:33)
[2022-04-17] MEDS ORDERED: NAPR-996 PO (17:33)
[2022-04-17] MEDS ORDERED: ALBU18HF2 INH (17:33)
[2022-04-17] MEDS ORDERED: BACL5TAB PO (17:33)
[2022-04-17 18:06] LABS: ANISOCYTOSIS 3+; MICROCYTOSIS 1+; PLATELET ESTIMATE NORMAL
[2022-04-17 18:07] LABS: POIKILOCYTOSIS 2+
--- NOTE | 2022-04-17 19:10 | NUR ---
One to one with the patient to assess severity of mental health symptoms. She had mild difficulty answering guestions. Her replies were disorganized at times. She was reminded of 5150 and she verbalized that she understood. She does not have a plan for residential and stated if she left the hospital she would find a place on the street. She stated that she was unable to carry food items and that she has not been sleeping or eating
[2022-04-17] MEDS: oxybutynin 5mg tablet PO SCH (20:00)
[2022-04-17] MEDS ORDERED: MORPHINE SULFATE PO SCH (20:00)
[2022-04-17] MEDS: naproxen 500mg tablet PO PRN (20:00)
[2022-04-17] MEDS: metoprolol tartrate 25mg tablet PO SCH (20:01)
[2022-04-17] MEDS: gabapentin 300mg capsule PO SCH (20:01)
[2022-04-17] MEDS: baclofen 10mg tablet PO SCH (20:01)
--- NOTE | 2022-04-17 20:08 | NUR ---
The patient appears to be sleeping
[2022-04-17] MEDS: budesonide 0.5mg/2ml UD nebule IH SCH (21:00)
--- NOTE | 2022-04-17 21:43 | NUR ---
The patient appears to be sleeping
--- NOTE | 2022-04-17 23:03 | NUR ---
The patient appears to be sleeping
--- NOTE | 2022-04-18 01:00 | NUR ---
The patient appears to be sleeping
--- NOTE | 2022-04-18 01:09 | NUR ---
The patient appears to be sleeping
--- NOTE | 2022-04-18 02:35 | NUR ---
The patient appears to be sleeping
--- NOTE | 2022-04-18 03:30 | NUR ---
The patient appears to be sleeping
--- NOTE | 2022-04-18 05:01 | NUR ---
NURSE TO NURSE WITH [facility] [place]
--- NOTE | 2022-04-18 05:27 | NUR ---
Patient ambulated to the bathroom. She is histrionic. She claims something is coming through the vents but would not elaborate. She was continent of urine during the night. She is making loud belching noises to get rid of the "gas in her body" Very odd somatic complaints. She was redirected.
--- NOTE | 2022-04-18 05:43 | NUR ---
The patient was declined at [facility] [place].
--- NOTE | 2022-04-18 05:49 | NUR ---
The patient reporting burning with urination and urine has a strong odor. Dr. Barone made aware and orders received.
[2022-04-18 05:58] LABS: CLARITY,URINE SLIGHTLY CLOUDY (Clear); GLUCOSE, URINE NEGATIVE (Neg); KETONES,URINE TRACE mg/dl (Neg); LEUKOCYTE ESTERASE ,URINE LARGE (Neg); NITRITES, URINE POSITIVE (Neg); OCCULT BLOOD,URINE SMALL (Neg); PH,URINE 5.5 (4.8-8.0); PROTEIN,URINE NEGATIVE (Neg); UROBILINOGEN,URINE 0.2 E.U/dL (0.2-1.0)
[2022-04-18 06:09] LABS: COLOR,URINE STRAW (Yellow); UA COLLECTION TYPE VOIDED
[2022-04-18 06:10] LABS: RBC,URINE 0-2 /HPF (0-2); WBC,URINE TNTC /HPF (0-4)
[2022-04-18 06:11] LABS: BACTERIA,URINE 4+ /HPF (Neg); MUCUS STRANDS NONE SEEN /LPF (Neg); SQUAMOUS EPITHELIAL CELL,UR MODERATE /LPF (FEW); TRANSITIONAL EPI CELLS,URINE FEW /HPF; WBC CLUMPS,URINE MODERATE /HPF (NEGATIVE)
[2022-04-18 06:12] LABS: CELLULAR CAST 0-4 /LPF (NEGATIVE)
--- NOTE | 2022-04-18 06:53 | NUR ---
Received order for Macrobid 100mg BID.
--- NOTE | 2022-04-18 07:10 | NUR ---
One to one with patient was completed at bedside. Pt was lying in her bed, coughing intermittently. Lungs were clear. Paged RT for PRN breathing treatment. Pt denies SI/HI, A/VH. Pt doesn't appear to be responding to internal stimuli, however there is a latency in her speech. Pt at times has difficulty answersing questions is circumstantial when she responds. Pt requested "warm broth" to take with her medication r/t "my sore throat." Pt doesn't appear to be in distress. Pt ambulated with a slow, steady gait to the bathroom, briefs were dry.
--- NOTE | 2022-04-18 07:30 | NUR ---
Pt was compliant with medication. Pt took each pill separately and typewriters functional tester explained each medication.
[2022-04-18] MEDS: baclofen 10mg tablet PO SCH ×2 (07:35→20:58)
[2022-04-18] MEDS: lactobacillus rhamnosus 10,000 MMU CELLS/CAPSULE PO SCH ×2 (07:35→20:56)
[2022-04-18] MEDS: metoprolol tartrate 25mg tablet PO SCH ×2 (07:36→21:01)
[2022-04-18] MEDS: venlafaxine XR 75mg capsule (Q24H) PO SCH (07:37)
[2022-04-18] MEDS: oxybutynin 5mg tablet PO SCH ×3 (07:37→21:08)
[2022-04-18] MEDS: nitrofuran monohydrate/nitrofuran macrocrysal 100 MG (MacroBID) capsule PO SCH ×2 (07:37→21:08)
[2022-04-18] MEDS: budesonide 0.5mg/2ml UD nebule IH SCH ×2 (07:46→19:49)
[2022-04-18] MEDS: albuterol 2.5 MG/3 ML nebule NEB PRN (07:46)
[2022-04-18] MEDS: gabapentin 300mg capsule PO SCH ×3 (08:07→21:01)
[2022-04-18] MEDS: pantoprazole 40mg Tablet.DR PO SCH (08:08)
--- NOTE | 2022-04-18 08:56 | NUR ---
Pt sleeping with head at foot of bed. No distress noted, respirations even and unlabored.
--- NOTE | 2022-04-18 11:00 | NUR ---
Pt sleeping comfortably, blanket pulled up around her. Respirations even and unlabored.
--- NOTE | 2022-04-18 13:00 | NUR ---
Pt awake lying in her bed with her feet facing the HOB. Pt was compliant with her medication. Pt continues to present slightly disorganized. Asked if she need assistance to bathroom, pt said no.
--- NOTE | 2022-04-18 15:05 | NUR ---
Pt in proper sleeping position, respirations even and unlabored.
--- NOTE | 2022-04-18 15:05 | NUR ---
Nurse to nurse with Elizabeth at [facility].
--- NOTE | 2022-04-18 15:08 | NUR ---
Leola at [facility] requested additional information on patient. Faxed nursing notes and med list to [phone]
--- NOTE | 2022-04-18 15:35 | NUR ---
Pt ambulated to bathroom with auto service writer at stand-by. Pt uses a cane at home. Pt's cane is in locker.
--- NOTE | 2022-04-18 16:57 | NUR ---
PT WAS ACCEPTED TO [facility]. [facility] WILL CALL TOMORROW WITH ETA FOR PASTER SUPERVISOR. NURSE TO NURSE TOMORROW MORNING PLEASE CALL [phone].
--- NOTE | 2022-04-18 17:18 | NUR ---
Pt continues to present disorganized. Pt has had several somatic complaints from a headache, to having diverticulitis. She reported a BM two days ago, now told comic writer it has been a week. Then talked about having diarrhea. Pt said she brought herself to ER because she "had a seizure and someone was giving her a handful of Tylenl..."
--- NOTE | 2022-04-18 21:00 | NUR ---
The patient asleep and was awakened for her evening medications. She is medication compliant and she was able to state her home meds. She makes numerous odd somatic complaints. Wanted to have another dose of effexor to help prevent her body "from seizing up"
--- NOTE | 2022-04-18 23:56 | NUR ---
The patient appears to be sleeping
--- NOTE | 2022-04-19 02:03 | NUR ---
The patient appears to be sleeping
--- NOTE | 2022-04-19 03:50 | NUR ---
The patient appears to be sleeping but restless at times.
--- NOTE | 2022-04-19 04:53 | NUR ---
The patient is laying on her bed but is awake
--- NOTE | 2022-04-19 07:02 | NUR ---
Patient is sleeping in bed. Respirations are even and unlabored.
[2022-04-19] MEDS: venlafaxine XR 75mg capsule (Q24H) PO SCH (07:46)
[2022-04-19] MEDS: gabapentin 300mg capsule PO SCH (07:46)
[2022-04-19] MEDS: nitrofuran monohydrate/nitrofuran macrocrysal 100 MG (MacroBID) capsule PO SCH (07:47)
[2022-04-19] MEDS: metoprolol tartrate 25mg tablet PO SCH (07:47)
[2022-04-19] MEDS: oxybutynin 5mg tablet PO SCH (07:47)
[2022-04-19] MEDS: lactobacillus rhamnosus 10,000 MMU CELLS/CAPSULE PO SCH (07:47)
[2022-04-19] MEDS: naproxen 500mg tablet PO PRN (07:48)
[2022-04-19] MEDS: baclofen 10mg tablet PO SCH (07:48)
[2022-04-19] MEDS: pantoprazole 40mg Tablet.DR PO SCH (07:48)
--- NOTE | 2022-04-19 08:15 | NUR ---
Received telephone call from Stephanie at [facility] for nurse to nurse. They will call [facility] and arrange transportation.
--- NOTE | 2022-04-19 08:38 | NUR ---
pt will be picked up at 1100 for transport
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
[2022-04-19] MEDS: budesonide 0.5mg/2ml UD nebule IH SCH (10:32)
[2022-04-19] MEDS: albuterol 2.5 MG/3 ML nebule NEB PRN (10:32)
--- NOTE | 2022-04-19 11:19 | NUR ---
Honey Blender here from [facility] here to transport patient to [facility] in [place]. Patient is taking her time getting ready. Security here to escort out of facility
[2022-04-19 11:37] VITALS: BP 132/83
== END 2022-04-19 11:42 ==
LOC: ER 14:31
DX: Z04.6 Encounter for general psychiatric examination, requested by authority (principal); Z20.822 Contact with and (suspected) exposure to COVID-19; Z74.1 Need for assistance with personal care; J45.909 Unspecified asthma, uncomplicated; G89.29 Other chronic pain; Z88.8 Allergy status to other drugs, medicaments and biological substances; Z88.1 Allergy status to other antibiotic agents; Z91.011 Allergy to milk products; Z91.018 Allergy to other foods; Z87.891 Personal history of nicotine dependence; Z59.00 Homelessness unspecified; Z56.0 Unemployment, unspecified
CPT/HCPCS: 36415; 80053; 80305; 80320; 81001; 81025; 84443; 85008; 85025; 87088; 87811; 99285; C2617; 87077; 87186; 94640; 94760